=== PATIENT | male | born 1995 | race Caucasian/White ===

== ENCOUNTER 2022-06-13 21:04 | Emergency (ER) | payer OTHER ==
[~2022-06-13] VITALS: Ht 177.8 cm; Wt 74.8 kg
--- NOTE | 2022-06-13 21:10 | NUR ---
C/O REDNESS/SWELLING ABOVE LEFT EYE X5 DAYS. TAKING DOXYCYCLINE X 2 DAYS.
[2022-06-13] MEDS ORDERED: IBUP-1957 PO (22:04)
--- NOTE | 2022-06-13 22:16 | NUR ---
Patient discharged to home in stable condition. Written and verbal after care instructions given. Patient verbalizes understanding of instruction.
[2022-06-13 22:17] VITALS: BP 125/78
== END 2022-06-13 22:21 | disposition home or self-care (01) ==
LOC: ER 21:04
DX: L02.01 Cutaneous abscess of face (principal); Z79.899 Other long term (current) drug therapy